=== PATIENT | female | born 1990 | race Caucasian/White ===

== ENCOUNTER 2017-02-03 09:22 | Emergency (ER) | payer OTHER ==
[~2017-02-03] VITALS: Ht 152.4 cm; Wt 92.1 kg
[~2017-02-03 09:22] MED LIST: LAC PO; PROVENTIL0.09 MG/A1 INH; ZITHROMAX250 MG PO
[2017-02-03 10:54] LABS: BASOPHIL % 0.7 % (0-2); PLATELET COUNT 321 x10^3mcL (130-400)
[2017-02-03 11:00] LABS: RED CELL DISTRIBUTION WIDTH 14.9 % (11.5-14.5)
[2017-02-03 11:04] LABS: CALCIUM 8.9 mg/dL (8.5-10.1); CARBON DIOXIDE 28.7 mmol/L (21-32); CHLORIDE SERUM 103 mmol/L (98-107); CREATININE SERUM 0.8 mg/dL (0.6-1.0); GFR1 > 60 mL/min; GLUCOSE SERUM 86 mg/dL (74-106); POTASSIUM SERUM 3.8 mmol/L (3.5-5.1); SODIUM SERUM 138 mmol/L (136-145)
[2017-02-03 11:08] LABS: ALBUMIN 3.7 g/dL (3.4-5.0); ALKALINE PHOSPHATASE 96 U/L (46-116); ALT/SGPT 41 U/L (14-59); AMYLASE 62 U/L (25-115); AST/SGOT 27 U/L (15-37); BILIRUBIN TOTAL 0.79 mg/dL (0.20-1.00); LIPASE 124 IU/L (73-393); TOTAL PROTEIN, SERUM 8.5 g/dL (6.4-8.2)
[2017-02-03 11:58] VITALS: BP 100/68
== END 2017-02-03 11:58 | disposition home or self-care (01) ==
LOC: ED 09:22
PROVIDERS: Emergency Medicine
DX: R10.13 Epigastric pain (principal); R19.7 Diarrhea, unspecified
CPT/HCPCS: 36415; 83880

== ENCOUNTER 2017-07-22 12:11 | Emergency (ER) | payer SELFPAY ==
[~2017-07-22] VITALS: Ht 152.4 cm; Wt 94.3 kg
[2017-07-22 12:19] VITALS: Ht 152.4 cm; Wt 94.3 kg
[2017-07-22 13:32] VITALS: BP 123/59
== END 2017-07-22 13:32 | disposition home or self-care (01) ==
LOC: ED 12:11
DX: J98.8 Other specified respiratory disorders (principal); H92.01 Otalgia, right ear; R07.89 Other chest pain

== ENCOUNTER 2017-09-14 20:44 | Emergency (ER) | payer SELFPAY ==
[~2017-09-14] VITALS: Ht 152.4 cm; Wt 95.0 kg
[2017-09-14 20:54] VITALS: Ht 152.4 cm; Wt 95.0 kg
[2017-09-14 21:47] LABS: BASOPHIL % 1.1 % (0-2); PLATELET COUNT 335 x10^3mcL (130-400); RED CELL DISTRIBUTION WIDTH 13.9 % (11.5-14.5)
[2017-09-14 21:49] LABS: CALCIUM 8.5 mg/dL (8.5-10.1); CARBON DIOXIDE 27.1 mmol/L (21-32); CHLORIDE SERUM 104 mmol/L (98-107); CREATININE SERUM 0.8 mg/dL (0.6-1.0); GFR1 > 60 mL/min; GLUCOSE SERUM 98 mg/dL (74-106); POTASSIUM SERUM 3.3 mmol/L (3.5-5.1); SODIUM SERUM 140 mmol/L (136-145)
[2017-09-14 21:53] LABS: ALBUMIN 3.4 g/dL (3.4-5.0); ALKALINE PHOSPHATASE 87 U/L (46-116); ALT/SGPT 42 U/L (14-59); AST/SGOT 21 U/L (15-37); BILIRUBIN TOTAL 0.53 mg/dL (0.20-1.00); LIPASE 138 IU/L (73-393); TOTAL PROTEIN, SERUM 7.4 g/dL (6.4-8.2)
[2017-09-14 22:00] LABS: UA SPECIFIC GRAVITY >=1.030 (1.005-1.035); microscopic required? YES; urine erythrocyte NEGATIVE (NEGATIVE)
[2017-09-15 00:47] VITALS: BP 101/64
== END 2017-09-15 00:47 | disposition home or self-care (01) ==
LOC: ED 20:44
PROVIDERS: Emergency Medicine
DX: N85.8 Other specified noninflammatory disorders of uterus (principal); K80.80 Other cholelithiasis without obstruction; M54.5 Low back pain
CPT/HCPCS: 36415